=== PATIENT | female | born 1990 | race Two or more races ===

== ENCOUNTER → 2020-01-14 | Outpatient (CLI) | payer OTHER ==
[~2020-01-14] MED LIST: BENADRYL50 MG PO; NITROFURANTOIN100 MG PO; OMEPRAZOLE20 MG PO; PRENATAL CAPLE1 EACH PO
== END | disposition home or self-care (01) ==
LOC: PRENATAL 13:29
PROVIDERS: ATTEND Obstetrics & Gynecology Maternal & Fetal Medicine
DX: O26.843 Uterine size-date discrepancy, third trimester (principal); O36.8131 Decreased fetal movements, third trimester, fetus 1; Z36.89 Encounter for other specified antenatal screening; Z3A.38 38 weeks gestation of pregnancy

== ENCOUNTER 2020-01-18 07:12 | Inpatient (IN) | payer OTHER ==
[~2020-01-18] VITALS: Ht 157.5 cm; Wt 73.0 kg
== END 2020-01-20 13:30 | disposition home or self-care (01) | DRG 807 ==
LOC: OB/GYN 07:12 → LDR 07:12 → OB/GYN 14:49
PROVIDERS: ADMIT Specialist; ATTEND Specialist
PROC: 10E0XZZ Delivery of Products of Conception, External Approach (ICD-10-PCS; principal; 2020-01-18)
PROC: 3E033VJ Introduction of Other Hormone into Peripheral Vein, Percutaneous Approach (ICD-10-PCS; 2020-01-18)
PROC: 4A1HXFZ Monitoring of Products of Conception, Cardiac Rhythm, External Approach (ICD-10-PCS; 2020-01-18)
PROC: 3E0P7VZ Introduction of Hormone into Female Reproductive, Via Natural or Artificial Opening (ICD-10-PCS; 2020-01-18)
DX: O24.420 Gestational diabetes mellitus in childbirth, diet controlled (principal); Z37.0 Single live birth; Z3A.39 39 weeks gestation of pregnancy; O99.824 Streptococcus B carrier state complicating childbirth; Z20.828 Contact with and (suspected) exposure to other viral communicable diseases

== ENCOUNTER 2021-11-21 15:49 | Emergency (ER) | payer OTHER ==
[~2021-11-21] VITALS: Ht 157.5 cm; Wt 58.1 kg
[2021-11-21] MEDS ORDERED: TAPAZOLE5 MG PO (16:31)
[2021-11-21] MEDS ORDERED: ATABEX DHA 200200 MG (16:31)
== END 2021-11-21 18:24 | disposition home or self-care (01) ==
LOC: ER 15:49
DX: O20.9 Hemorrhage in early pregnancy, unspecified (principal); Z3A.01 Less than 8 weeks gestation of pregnancy; Z88.2 Allergy status to sulfonamides

== ENCOUNTER 2024-12-28 20:29 | Emergency (ER) | payer OTHER ==
[~2024-12-28] VITALS: Ht 157.5 cm; Wt 61.7 kg
[~2024-12-28 20:29] MED LIST changes: +ATABEX DHA 200200 MG; +TAPAZOLE5 MG PO
[2024-12-28] MEDS ORDERED: PROPRANOLOL HCL10 MG PO (20:39)
[2024-12-28] MEDS ORDERED: METHIMAZOLE10 MG (20:39)
[2024-12-28] MEDS ORDERED: ZYRTEC10 MG PO (20:40)
[2024-12-28] MEDS ORDERED: TRAMADOL HCL 50 MG TABLET PO ONE (23:30)
[2024-12-28] MEDS ORDERED: ACETAMINOPHEN 500 MG GEL..CAP PO ONE (23:30)
[2024-12-28 23:53] LABS: BASO % 0.3 % (0.1-1.2); EOS # 0.16 (0.04-0.54); EOS % 2.4 % (0.7-7.0); LYMPH # 1.99 (1.18-3.74); LYMPH % 29.9 % (19.3-53.1); MEAN PLATELET VOLUME 9.40 fl (9.4-12.4); MONO # 0.36 (0.24-0.82); MONO % 5.4 % (4.7-12.5); NEUT # 4.12 (1.56-6.13); NEUT % 61.8 % (34.0-71.1); RED CELL DISTRIBUTION WIDTH 13.6 % (11.6-14.4)
[2024-12-29 00:26] LABS: ALT/SGPT 24.0 U/L (12-78); AST/SGOT 13.0 U/L (15-37); BILIRUBIN TOTAL 0.54 mg/dL (0.3-1.2); BUN CREA RATIO 27.0 (7.0-25.0); GFR 133.43; GLOBULINA 4.3 G/DL (2.4-3.5); GLUCOSE FASTING 154.0 mg/dL (65-100); OSMOLALITY SERUM 277.0 MOSM/KG (275-295)
[2024-12-29 00:27] LABS: URINE APPEARANCE Clear; URINE BILIRRUBIN Negative (NEGATIVE); URINE BLOOD Negative; URINE COLOR Yellow; URINE GLUCOSE Negative (NEGATIVE); URINE KETONE Negative (NEGATIVE); URINE LEUKOCYTE Negative; URINE NITRATE Negative; URINE PROTEIN Negative (NEGATIVE); URINE UROBILINOGEN 0.2 E.U./dl
[2024-12-29 00:29] LABS: CREATININE SERUM 0.52 mg/dL (0.55-1.02)
[2024-12-29 00:30] LABS: URINE BACTERIA 273.5 uL (0.0-1933); URINE EPITHELIAL CELLS 18.8 uL (0.0-38.8); URINE RBC 6.3 uL (0.0-20.8); URINE WBC 26.7 uL (0.0-23.2)
[2024-12-29 00:33] LABS: URINE CAST 0.29 uL (0.0-1.40)
[2024-12-29 00:43] LABS: COVID-19 AG NEGATIVE (NEGATIVE)
== END 2024-12-29 01:08 | disposition home or self-care (01) ==
LOC: ER 20:29
PROVIDERS: Emergency Medicine
DX: R51.9 Headache, unspecified (principal); Z20.822 Contact with and (suspected) exposure to COVID-19; Z88.2 Allergy status to sulfonamides